=== PATIENT | female | born 1960 | race Caucasian/White ===

== ENCOUNTER 2024-10-02 21:14 | Emergency (ER) | payer OTHER ==
[~2024-10-02] VITALS: Ht 157.5 cm; Wt 81.7 kg
[~2024-10-02 21:14] MED LIST: BISA5EC; CHOL10002; Gas-X125 MG; OMEP20ER PO; OXYB5ER; RANI150; Senna8.6 MG; VITAMIN B-122000 MC1 PO
[2024-10-02] MEDS ORDERED: Ondansetron 4 MG SoluTab SL ONE (22:55)
[2024-10-03] MEDS ORDERED: Propofol 10mg/ml 20 ml Vial (Procedural) IV SCH (00:35)
[2024-10-03] MEDS ORDERED: NS 1,000 ML IV SCH (00:35)
[2024-10-03] MEDS ORDERED: Acetaminophen 500 MG Tab PO ONE (01:15)
[2024-10-03] MEDS ORDERED: Ketorolac Tromethamine 15mg Vial IV ONE (01:15)
[2024-10-03] MEDS ORDERED: OxyCODONE HCL 5 MG TAB PO ONE (01:15)
[2024-10-03] MEDS ORDERED: RX Prepack 6 Tabs Oxycodone 5mg UD ONE (01:15)
[2024-10-03 01:30] VITALS: BP 142/82
[2024-10-03] MEDS ORDERED: Roxicodone5 MG PO (01:36)
[2024-10-07] MEDS ORDERED: SERT50 PO (08:39)
[2024-10-07] MEDS ORDERED: Diovan320 MG PO (08:39)
[2024-10-07] MEDS ORDERED: Estradiol0.5 MG PO (08:40)
[2024-10-07] MEDS ORDERED: Vitamin B Comple1 EA PO (08:43)
== END 2024-10-03 02:02 | disposition home or self-care (01) ==
LOC: ER 21:14
DX: S52.502A Unspecified fracture of the lower end of left radius, initial encounter for closed fracture (principal); S52.612A Displaced fracture of left ulna styloid process, initial encounter for closed fracture; I10 Essential (primary) hypertension; W18.30XA Fall on same level, unspecified, initial encounter; Y93.51 Activity, roller skating (inline) and skateboarding; Z79.899 Other long term (current) drug therapy
CPT/HCPCS: 25605; 73090; 73100; 73110; 96374; 99283-25; A9270; J1885; J2704; J7030

== ENCOUNTER 2024-10-13 12:40 | Day surgery (SDC) | payer OTHER ==
[~2024-10-13] VITALS: Ht 157.5 cm; Wt 82.5 kg
[2024-10-13] VITALS (10 sets, daily range): BP systolic 104–147; BP diastolic 54–85
[~2024-10-13 12:40] MED LIST changes: +Diovan320 MG PO; +Estradiol0.5 MG PO; +Roxicodone5 MG PO; +SERT50 PO; +Vitamin B Comple1 EA PO
[2024-10-13] MEDS ORDERED: propofoL 100 ML IV ONE (12:50)
[2024-10-13] MEDS ORDERED: Ropivacaine 0.5% HCL/PF 5 MG/ML 30ML Vial ONE (12:50)
[2024-10-13] MEDS ORDERED: Lactated Ringer's 1,000 ML IV SCH (13:05)
[2024-10-13] MEDS ORDERED: CeFAZolin Sodium 2,000 MG in NS 100 ML IV SCH (13:05)
[2024-10-13] MEDS ORDERED: EpiNEPhrine 1 MG/1 ML 1ML Vial ONE (14:14)
[2024-10-13] MEDS ORDERED: Ondansetron HCl 2 MG / ML 2ML Vial ONE (14:14)
[2024-10-13] MEDS ORDERED: Ketorolac Tromethamine 30mg Vial ONE (14:14)
[2024-10-13] MEDS ORDERED: Dexamethasone Sod Phos 10 MG/ML 1ML VIAL ONE (14:14)
[2024-10-13] MEDS ORDERED: FentaNYL Citrate 50 MCG/ML 2 ML Injection ONE (14:14)
--- NOTE | 2024-10-13 14:16 | NUR ---
Ambulatory in Day Surgery. History, Chart, Medications and Allergies reviewed before start of procedure. Lungs clear T/O to Auscultation. Patient confirms NPO status and agrees with scheduled surgery. Pre-Op teaching done. Pt verbalizes understanding. Patient States Post-Procedure ride home has been arranged. PT BELONGINGS PLACED UNDERNEATH GURNEY FOR SAFEKEEPING. PT GLASSES TAKEN TO PACU FOR SAFEKEEPING.
[2024-10-13] MEDS ORDERED: ePHEDrine Sulfate 50 MG/ML 1ML Injection ONE (14:20)
--- NOTE | 2024-10-13 14:30 | NUR ---
PT REQUESTING SPLINT/JONI WRAP TO BE REMOVED FROM LEFT WRIST. THIS WAS OKAYED BY DR HARRELL. PREOP RN REMOVED AND COMPLETED CHLORHEXIDINE WIPE TO L WRIST. PT TOLERATED WELL.
--- NOTE | 2024-10-13 16:01 | NUR ---
NERVE BLOCK PERFORMED AT BEDSIDE WITH ANESTHESIA PROVIDER. TIME OUT DONE WITH SURGICAL CONSENT. PT PLACED ON 2L O2 VIA NC PER ANESTHESIA PROVIDERS ORDERS. SPO2 MONITOR IN PLACE. SEE ANESTHESIA NERVE BLOCK NOTES.
[2024-10-13] MEDS ORDERED: Phenylephrine HCl 100 MCG/ML-NS 10MLSYR (1MG/10ML) ONE (16:14)
[2024-10-13] MEDS ORDERED: HYDROmorphone HCl/Pf 1MG SYR ONE (16:26)
[2024-10-13] MEDS ORDERED: Lidocaine HCl 2% 20 ML MDV ONE (16:48)
[2024-10-13] MEDS ORDERED: Vasopressin 20 UNITS/ML 1ML Vial ONE (17:17)
[2024-10-13] MEDS ORDERED: propofoL 40 ML IV ONE (17:23)
[2024-10-13] MEDS ORDERED: OxyCODONE 5 mg/Acetamin 325 mg TABLET PO PRN (18:15)
[2024-10-13] MEDS ORDERED: Naloxone HCl 0.4MG / ML 1ML Vial ONE (18:29)
--- NOTE | 2024-10-13 19:28 | NUR ---
Patient States Post-Procedure ride home has been arranged. Patient up to Ambulate independently. Gait steady. Discharged via wheelchair to private car for ride home. TOLERATING PO JUICE, DENIES PAIN, L ARM IN SLING, ICE PACKS TO L ARM
== END 2024-10-13 22:57 | disposition home or self-care (01) ==
LOC: ORSCMMR 12:40 → ORD 14:00 → ORSCMMR 14:00
PROVIDERS: Orthopaedic Surgery
PROC: 0PSJ04Z Reposition Left Radius with Internal Fixation Device, Open Approach (ICD-10-PCS; principal; 2024-10-13 16:00)
DX: S52.532A Colles' fracture of left radius, initial encounter for closed fracture (principal); X58.XXXA Exposure to other specified factors, initial encounter; Y93.51 Activity, roller skating (inline) and skateboarding; I10 Essential (primary) hypertension; K21.9 Gastro-esophageal reflux disease without esophagitis; E03.9 Hypothyroidism, unspecified; E66.9 Obesity, unspecified; Z68.33 Body mass index [BMI] 33.0-33.9, adult; Z79.899 Other long term (current) drug therapy
CPT/HCPCS: 73100; C1713; J0171; J0690; J1100; J1171; J1885; J2310; J2371; J2405; J2704; J2795; J3010; J7120